=== PATIENT | male | born 1955 | race African-American/Black ===

== ENCOUNTER 2017-05-05 18:38 | Emergency (ER) | payer OTHER, MEDICAID ==
[~2017-05-05 18:38] MED LIST: ADA30 PO; APR25 PO; ASPIR 8181 MG PO; ASPIRIN EC81 M1 PO; CAT0.1 PO; CLINDAMYCIN300 M1 PO; CLONIDINE HCL0.2 MG PO; COREG12.5 MG PO; DILTIAZEM HCL120 M2; DILTIAZEM HCL240 MG PO; FLO4 PO; FUROSEMIDE40 MG PO; INSULIN LANTUS; L40 PO; LABETALOL HCL200 MG; LABETALOL HYDR300 MG PO; LAC PO; LEVAQUIN LEVA-750 M1 PO; LIPI10 PO; LOP50 PO; MEV20 PO; NEPHRO-VITE VITA1 EA PO; NOVOLIN 70/3010 ML SC; NOVOLOG MI10 U/0.11 SC; OXYC PO; RENVELA800 M1 PO; TAMSULOSIN HYD0.4 M1 PO; XARELTO15 M1 PO
[2017-05-05 19:58] LABS: BASOPHIL % 0.4 % (0-2); PLATELET COUNT 203 x10^3mcL (130-400)
[2017-05-05 20:08] LABS: ALBUMIN 3.8 g/dL (3.4-5.0); BILIRUBIN TOTAL 1.2 mg/dL (0.20-1.00); CALCIUM 9.7 mg/dL (8.5-10.1); CARBON DIOXIDE 28.4 mmol/L (21-32); POTASSIUM SERUM 4.3 mmol/L (3.5-5.1)
[2017-05-05 20:09] LABS: TOTAL PROTEIN, SERUM 8.4 g/dL (6.4-8.2)
[2017-05-05 20:19] LABS: RED CELL DISTRIBUTION WIDTH 18.3 % (11.5-14.5)
[2017-05-05 23:07] VITALS: BP 152/78
== END 2017-05-05 23:07 | disposition home or self-care (01) ==
LOC: ED 18:38
PROVIDERS: Emergency Medicine
DX: R10.31 Right lower quadrant pain (principal); R10.32 Left lower quadrant pain; R11.10 Vomiting, unspecified; R19.7 Diarrhea, unspecified; I10 Essential (primary) hypertension; E11.9 Type 2 diabetes mellitus without complications; Z79.899 Other long term (current) drug therapy; Z88.0 Allergy status to penicillin; Z88.5 Allergy status to narcotic agent; Z88.8 Allergy status to other drugs, medicaments and biological substances; Z88.6 Allergy status to analgesic agent; Z99.2 Dependence on renal dialysis
CPT/HCPCS: J1170; J2405; J7040; Q0092

== ENCOUNTER 2017-06-05 12:59 | Emergency (ER) | payer OTHER, MEDICAID ==
[~2017-06-05] VITALS: Ht 190.5 cm; Wt 97.5 kg
[2017-06-05 13:39] LABS: BASOPHIL % 0.2 % (0-2); PLATELET COUNT 179 x10^3mcL (130-400)
[2017-06-05 13:43] LABS: RED CELL DISTRIBUTION WIDTH 18.4 % (11.5-14.5)
[2017-06-05 13:55] LABS: ALBUMIN 3.5 g/dL (3.4-5.0); BILIRUBIN TOTAL 0.87 mg/dL (0.20-1.00); CALCIUM 8.8 mg/dL (8.5-10.1); CARBON DIOXIDE 29.5 mmol/L (21-32); POTASSIUM SERUM 4.6 mmol/L (3.5-5.1)
[2017-06-05 14:01] LABS: CREATININE SERUM 9.3 mg/dL (0.7-1.3)
[2017-06-05 15:41] VITALS: BP 141/62
== END 2017-06-05 15:41 | disposition home or self-care (01) ==
LOC: ED 12:59
PROVIDERS: Emergency Medicine
DX: R10.9 Unspecified abdominal pain (principal); I12.9 Hypertensive chronic kidney disease with stage 1 through stage 4 chronic kidney disease, or unspecified chronic kidney disease; E11.22 Type 2 diabetes mellitus with diabetic chronic kidney disease; N18.9 Chronic kidney disease, unspecified; M54.30 Sciatica, unspecified side; Z88.6 Allergy status to analgesic agent; Z88.0 Allergy status to penicillin; Z88.5 Allergy status to narcotic agent
CPT/HCPCS: 83880; J2765; J3010

== ENCOUNTER 2017-06-28 15:15 | Inpatient (IN) | payer OTHER, MEDICAID ==
[~2017-06-28] VITALS: Ht 190.5 cm; Wt 91.7 kg
--- NOTE | 2017-06-28 15:34 | NUR ---
EKG BY EMT
--- NOTE | 2017-06-28 15:42 | NUR ---
PT BIB FAMILY C/C CT ABD PAIN HEMATURIA STS MISSED DYALISIS THIS AM PLACED ON MONITOR AWAITING FOR DR DARCI BARILLAS
--- NOTE | 2017-06-28 15:50 | NUR ---
PLEASE ENTER FULL NAMES OF GLOBAL UPSTREAM MARKETING MANAGER/RN Patient data collected by (GLOBAL UPSTREAM MARKETING MANAGER): Jaime HUDSON Assessment reviewed and completed by (RN): Denisha THURMAN
--- NOTE | 2017-06-28 16:32 | NUR ---
DR BARCENAS AT BEDSIDE TO NARGIS
--- NOTE | 2017-06-28 16:39 | NUR ---
XRAY AT BEDSIDE
--- NOTE | 2017-06-28 16:50 | NUR ---
RT AND COST RECOVERY TECHNICIAN AT BEDSIDE FOR BLOOD DRAW ABG
[2017-06-28 17:05] LABS: BASOPHIL % 0.1 % (0-2); PLATELET COUNT 158 x10^3mcL (130-400)
[2017-06-28 17:09] LABS: RED CELL DISTRIBUTION WIDTH 15.4 % (11.5-14.5)
[2017-06-28 17:18] LABS: ALBUMIN 3.8 g/dL (3.4-5.0); BILIRUBIN TOTAL 1.42 mg/dL (0.20-1.00); CALCIUM 9.8 mg/dL (8.5-10.1); CARBON DIOXIDE 31.5 mmol/L (21-32); POTASSIUM SERUM 5.1 mmol/L (3.5-5.1); TOTAL PROTEIN, SERUM 9.3 g/dL (6.4-8.2)
--- NOTE | 2017-06-28 18:31 | NUR ---
PT ADMIT TO TELE ROOM 254A GAVE REPORT TO ALLY
--- NOTE | 2017-06-28 19:23 | NUR ---
REC'D PT FROM ER VIA [facility]. PT IS AAOX4. C/O MILD HEADACHE AND DIZZINESS. TELE #6 SR WITH 1ST DEGREE AVB. PT C/O 10/10 CHEST PAIN AND ABD PAIN. RESP EVEN AND UNLABORED. NO SOB NOTED. 3+ EDEMA NOTED TO BLE. ABD SOFT. BS ACTIVE X4. PT C/O MILD NAUSEA. PT REPORTS HAVING DIARRHEA. AV SHUNT NOTED TO LEFT ARM. SMALL ABRASION NOTED TO RIGHT FOOT 2ND TOE. BANDAID APPLIED. IV NOTED TO RW. INTACT AND PATENT. ORIENTED PT TO CALL LIGHT. BED IN LOWEST POSITION. WILL ENDORSE TO PRIMARY RN.
[2017-06-28 19:43] VITALS: BP 160/106
[2017-06-28 20:01] LABS: microscopic required? YES; urine erythrocyte 3+ (NEGATIVE)
[2017-06-28 20:19] LABS: AMPHETAMINE QUAL UR NONE DETECTED (NEG <=1000)
[2017-06-28 20:57] LABS: T3 TOTAL 0.52 ng/mL
[2017-06-28 21:01] LABS: FREE T4 1.29 ng/dL (0.76-1.46); FREE THYROXINE INDEX 2.8 ug/dL (1.4-4.5)
[2017-06-28 21:04] LABS: CHOLESTEROL/HDL RATIO 2.6; MAGNESIUM 2.9 mg/dL (1.8-2.4); PHOSPHOROUS 6.4 mg/dL (2.5-4.9)
--- NOTE | 2017-06-29 04:00 | NUR ---
DR MCNULTY MADE AWARE OF LATEST TROP LEVEL 0.150 NO FURTHER ORDERS MADE AT THIS TIME
--- NOTE | 2017-06-29 06:10 | NUR ---
PATIENT RESTING IN BED. RESPIRATION EVEN AND UNLABORED, ON ROOM AIR. RECEIVED TELEPHONE ORDER TO GIVE LABETALOL 300 MG PO FOR ELEVATED BP. ASSISTED WITH NEEDS. SAFETY OBSERVED. PLACED CALL LIGHT WITHIN REACH AT ALL TIMES.
[2017-06-29 06:12] VITALS: BP 182/100
[2017-06-29 06:14] LABS: CALCIUM 8.9 mg/dL (8.5-10.1); CARBON DIOXIDE 32.3 mmol/L (21-32); PHOSPHOROUS 3.9 mg/dL (2.5-4.9); POTASSIUM SERUM 3.3 mmol/L (3.5-5.1)
[2017-06-29 06:21] LABS: BASOPHIL % 0.7 % (0-2); PLATELET COUNT 138 x10^3mcL (130-400)
[2017-06-29 06:23] VITALS: BP 171/93
--- NOTE | 2017-06-29 06:24 | NUR ---
PATIENTS LATEST BLOOD PRESSURE 171/93 POST LABETALOL 300 MG PO. RECEIVED TELEPHONE ORDER FROM DR MCNULTY TO GIVE ONE MORE BLOOD PRESSURE MEDICATION EARLY.
[2017-06-29 06:26] LABS: RED CELL DISTRIBUTION WIDTH 15.2 % (11.5-14.5)
[2017-06-29 06:29] LABS: CREATININE SERUM 7.3 mg/dL (0.7-1.3)
--- NOTE | 2017-06-29 07:15 | NUR ---
AAOX3, ABLE TO VERBALIZE NEEDS WITH CLEAR AND COHERENT SPEECH, WAS DIALYZED THIS AM, 3.5L REMOVED, DENIES SOB, DIZZINESS, ABLE TO FOLLOW SIMPLE COMMANDS, AV SHUNT AT LEFT ARM, WITH POSITIVE BRUIT &THRILL, REPORTS HX OF BLOODY STOOL, HAS URINE OUTPUT, NO ACTIVE BLEEDING NOTED OR REPORTED, ON TELE #6 SR W/1 AVB, IV HEPLOCK AT R/WRIST, CALL LIGHT WITHIN REACH, WILL CONTINUE TO PROVIDE CARE.
--- NOTE | 2017-06-29 08:10 | NUR ---
C/O GENERALIZED PAIN 02/28, PAIN ADMIN ORDERED, REPORTS HX OF SCIATIC PAIN, ASSISTED TO POSITION OF COMFORT, CALL LIGHT WITHIN REACH, STUDENT RN OFFERING ASSISTANCE, CALL LIGHT WITHIN REACH, WILL CONTINUE TO PROVIDE CARE.
--- NOTE | 2017-06-29 08:16 | NUR ---
WIND TUNNEL MECHANIC REPORTS THE NEED TO CONSULT WITH RADIOLOGIST PRIOR TO STUDY 2/ PATIENT'S CALCULATED GFR 14.1. PT IS CURRENTLY NPO.
[2017-06-29 09:19] VITALS: BP 168/93
--- NOTE | 2017-06-29 10:00 | NUR ---
DOSE OF LASIX NOT GIVEN, POTASSIUM IS 3.3
--- NOTE | 2017-06-29 11:17 | NUR ---
ECHO NOT COMPLETED PT. REFUSED STUDY. PT. SEES FOR CARDIOLOGY AND HAD ECHO PLUS STRESS TEST DONE 2 MONTHS PRIOR.
[2017-06-29 13:06] VITALS: BP 159/97
--- NOTE | 2017-06-29 13:08 | NUR ---
1205: SPOKE WITH PRODUCT ANALYST REGARDING TIME OF CT, TECH REPORTS HAVING SEVERAL CASES IN ER AND WILL COME UP ONCE THOSE ARE COMPLETED. 1305: PATIENT VERBALIZED FEELING UPSET, HE IS VERY HUNGRY AND "DON'T UNDERSTAND WHY I AM NOT BEEN FED" PRIMARY RN PROVIDED INFORMATION ON NPO REQUIREMENTS FOR CT ANGIO, PT WOULD LIKE TO SPEAK WITH DOCTOR "NOW," DR CLEVELAND PAGED.
--- NOTE | 2017-06-29 13:25 | NUR ---
DR CLEVELAND AT BEDSIDE TO SPEAK WITH PATIETN, ALL QUESTIONS AND CONCERNS ADDRESSED.
--- NOTE | 2017-06-29 13:30 | NUR ---
TAKEN DOWNSTAIRS FOR CT VIA WHEELCHAIR.
--- NOTE | 2017-06-29 13:38 | NUR ---
RUBÉN FROM CT REPORTS CONTRAST CANNOT BE INJECTED INTO THE WRIST, PT REQUIRES NEW IV START, RESOURCE RN WILL BE GOING DOWNSTAIRS TO START ONE.
--- NOTE | 2017-06-29 14:26 | NUR ---
RETURNED FROM CT, HAVING LUNCH.
[2017-06-29 17:08] VITALS: BP 165/99
--- NOTE | 2017-06-29 17:55 | NUR ---
REFUSED XARELTO DOSE, PATIENT REPORTS THIS MEDICATION "MADE ME BLEED AND I WAS IN THE HOSPITAL FOR 2 WEEKS," RISKS AND BENEFITS EXPLAINED, PT VERBALIZED UNDERSTANDING, DR CLEVELAND MADE AWARE.
--- NOTE | 2017-06-29 18:21 | NUR ---
RESTING IN BED, C/O RLE PAIN 10/29, ASSISTED TO POSITION OF COMFORT, WILL MONITOR CLOSELY FOR SAFETY AND COMFORT, WILL HAVE HD IN THE AM, REFUSED DOSE OF XARELTO, REPORTS HX OF BLEEDING EPISODE WITH MEDICAITON, DR CLEVELAND IS AWARE AND WILL D/C ORDER, NO OTHER SIGNIFICANT CHANGES NOTED, WILL ENDORSE CARE TO NIGHT NURSE.
--- NOTE | 2017-06-29 20:19 | NUR ---
PT CURRENTLY RESTING IN BED, NO ACUTE DISTRESS. A/O X4. TELE #6 SHOWING SINUS RHYTHM, DENIES CHEST PAIN. PULSES PALPABLE IN ALL EXTREMITIES, NO EDEMA NOTED. LUNG SOUNDS CTA BILATERALLY, DENIES SOB. BOWEL SOUNDS ACTIVE, LAST BM 06/28/17, PT REPORTS PREVIOUS BLOODY STOOLS. OLIGURIC. AV SHUNT NOTED TO LFA. GENERALIZED WEAKNESS, SLOW GAIT, AMBULATORY WITH CANE. RIGHT FOOT 2ND TOE ABRASION EDI DEVELOPER. C/O BILATERAL LEG PAIN /, MEDICATED PER EMAR. IV PATENT AND INTACT. BED IN LOWEST POSITION, SIDE RAILS UP X2, SCDS IN PLACE, CALL LIGHT WITHIN REACH. WILL CONTINUE TO MONITOR.
[2017-06-29 21:43] VITALS: BP 145/94
--- NOTE | 2017-06-29 23:13 | NUR ---
CALLED [facility] AND LEFT A MESSAGE FOR HD 06/30 AT 0600.
--- NOTE | 2017-06-30 00:12 | NUR ---
PT CURRENTLY RESTING IN BED, NO ACUTE DISTRESS. WILL CONTINUE TO MONITOR.
--- NOTE | 2017-06-30 01:15 | NUR ---
PT STATED BLOOD SUGAR FEELING LOW. BLOOD GLUCOSE 57, PT GIVEN FOOD, REPEAT BLOOD GLUCOSE 54. D50 ADMINISTERED. WILL CONTINUE TO MONITOR.
--- NOTE | 2017-06-30 01:37 | NUR ---
BLOOD GLUCOSE POST D50 169, NO ACUTE DISTRESS. WILL CONTINUE TO MONITOR.
[2017-06-30 05:20] VITALS: BP 152/91
--- NOTE | 2017-06-30 06:06 | NUR ---
PT SLEPT PERIODICALLY THROUGHOUT NIGHT, NO ACUTE DISTRESS. ALL NEEDS MET AND ATTENDED TO. NO SIGNIFICANT CHANGES. IV PATENT AND INTACT. MEDICATED PAIN PER EMAR. BED IN LOWEST POSITION, SIDE RAILS UP X2, SCDS IN PLACE, CALL LIGHT WITHIN REACH. WILL ENDORSE CARE TO ONCOMING NURSE.
[2017-06-30 06:15] LABS: BASOPHIL % 0.2 % (0-2); PLATELET COUNT 138 x10^3mcL (130-400)
[2017-06-30 06:25] LABS: RED CELL DISTRIBUTION WIDTH 14.9 % (11.5-14.5)
[2017-06-30 06:32] LABS: CALCIUM 8.6 mg/dL (8.5-10.1); CARBON DIOXIDE 29.1 mmol/L (21-32); MAGNESIUM 2.2 mg/dL (1.8-2.4); PHOSPHOROUS 5.5 mg/dL (2.5-4.9); POTASSIUM SERUM 4.2 mmol/L (3.5-5.1)
[2017-06-30 06:39] LABS: CREATININE SERUM 9.3 mg/dL (0.7-1.3)
--- NOTE | 2017-06-30 06:40 | NUR ---
RECEIVED A CALL FROM LENIN INIGUEZ)- CREAT=9.3, BUN=51.0, WILL RELAY TO ASSIGN NURSE HAILE-ALBA.
--- NOTE | 2017-06-30 08:00 | NUR ---
RECEIVED PT IN BED ALERT AND ORIENTED X4. TELE #6, NSR WITH 1ST DEGREE AV BLOCK. DENIES CHEST PAIN. BREATHING EVEN AND UNLABORED ON RA, NO SOB. AV SHUNT TO LFA WITH POSITIVE BRUIT AND THRILL. FOR HD TODAY. AMBULATES WITH CANE. NO EDEMA NOTED. ISNTRUCTED TO USE CALL LIGHT WHEN IN NEED OF ANY ASSISTANCE.
--- NOTE | 2017-06-30 08:30 | NUR ---
BEDSIDE ROUNDS DONE WITH DR RODRIGUEZ, PT EXPRESSED DESIRE TO GO HOME LATER TODAY. EXPLAINED IMPORTANCE OF GETTING A CARDIAC AND SURGERY CONSULT BEFORE DISCHARGE, PT VERBALIZED UNDERSTANDING.
[2017-06-30 09:10] VITALS: BP 149/90
--- NOTE | 2017-06-30 10:30 | NUR ---
HEMODIALYSIS ONGOING NOW.
[2017-06-30 12:10] VITALS: BP 157/90
--- NOTE | 2017-06-30 14:00 | NUR ---
HEMODIALYSIS DONE WITH TOTAL OUTPUT OF 1.4L. PT DENIES ANY PAIN OR DISCOMFORT AT THIS TIME.
--- NOTE | 2017-06-30 17:40 | NUR ---
PT SITTING UP IN BED, DENIES ANY PAIN OR DISCOMFORT. ALL NEEDS ATTENDED TO. CALL LIGHT WITHIN REACH.
[2017-06-30 17:41] VITALS: BP 159/100
--- NOTE | 2017-06-30 19:00 | NUR ---
PT SEEN BY DR JOHNSON AND DR BAUTISTA WAS CLEARED. PT WANTING TO GO HOME NOW. DR CLEVELAND SPOKE TO HIM AND EXPLAINED THAT DISCHARGE IS NOT PLANNED FOR TODAY, PT WANTING TO GO AMA. DR CLEVELAND EXPLAINED TO PT RISKS OF LEAVING AMA, PT VERBALIZED UNDERSTANDING. IV AND TELE DC'D. PT BROUGHT OFF FLOOR VIA [facility], FAMILY HERE TO LABORATORY ANALYST PT.
== END 2017-06-30 19:00 | disposition left against medical advice (07) | DRG 205 ==
LOC: ED 15:15 → DU 18:03
PROVIDERS: Emergency Medicine; Internal Medicine Nephrology; ADMIT Family Medicine Sports Medicine
DX: M94.0 Chondrocostal junction syndrome [Tietze] (principal); N18.6 End stage renal disease; N17.0 Acute kidney failure with tubular necrosis; I50.43 Acute on chronic combined systolic (congestive) and diastolic (congestive) heart failure; D68.69 Other thrombophilia; K92.1 Melena; I13.2 Hypertensive heart and chronic kidney disease with heart failure and with stage 5 chronic kidney disease, or end stage renal disease; E11.22 Type 2 diabetes mellitus with diabetic chronic kidney disease; E11.51 Type 2 diabetes mellitus with diabetic peripheral angiopathy without gangrene; E11.65 Type 2 diabetes mellitus with hyperglycemia; B18.2 Chronic viral hepatitis C; R80.9 Proteinuria, unspecified; I34.0 Nonrheumatic mitral (valve) insufficiency; I36.1 Nonrheumatic tricuspid (valve) insufficiency; R31.9 Hematuria, unspecified; E83.39 Other disorders of phosphorus metabolism; D63.1 Anemia in chronic kidney disease; Z99.2 Dependence on renal dialysis; Z79.4 Long term (current) use of insulin; Z68.26 Body mass index [BMI] 26.0-26.9, adult; Z91.15 Patient's noncompliance with renal dialysis; Z85.46 Personal history of malignant neoplasm of prostate; Z91.19 Patient's noncompliance with other medical treatment and regimen
CPT/HCPCS: 83880; 84439; 85378; A4719; J1170; J1940; J3490; J7030; Q0092; Q9967

== ENCOUNTER 2017-12-21 06:00 | Inpatient (IN) | payer OTHER, MEDICAID ==
[~2017-12-21] VITALS: Ht 188 cm; Wt 97.5 kg
[2017-12-21 06:05] VITALS: Ht 188 cm; Wt 97.5 kg
[2017-12-21 07:01] LABS: ALBUMIN 3.7 g/dL (3.4-5.0); BILIRUBIN TOTAL 1.2 mg/dL (0.20-1.00); CALCIUM 9.3 mg/dL (8.5-10.1); CARBON DIOXIDE 31.6 mmol/L (21-32); PHOSPHOROUS 3.7 mg/dL (2.5-4.9); POTASSIUM SERUM 4.2 mmol/L (3.5-5.1); URIC ACID 4.1 mg/dL (3.5-7.2)
[2017-12-21 07:04] LABS: TOTAL PROTEIN, SERUM 8.5 g/dL (6.4-8.2)
[2017-12-21 07:06] LABS: CREATININE SERUM 8.9 mg/dL (0.7-1.3)
[2017-12-21 07:27] LABS: BASOPHIL % 0.2 % (0-2)
[2017-12-21 07:37] LABS: PLATELET COUNT 119 x10^3mcL (130-400); RED CELL DISTRIBUTION WIDTH 16.1 % (11.5-14.5)
[2017-12-21 09:59] LABS: MAGNESIUM 2.7 mg/dL (1.8-2.4)
[2017-12-21 10:00] LABS: T3 TOTAL 0.74 ng/mL
[2017-12-21 10:08] LABS: FREE T4 1.17 ng/dL (0.76-1.46); FREE THYROXINE INDEX 2.8 ug/dL (1.4-4.5); T4(THYROXINE) 7.7 ug/dL (4.7-13.3)
[2017-12-21 11:08] VITALS: BP 196/116
[2017-12-21 14:16] VITALS: BP 188/113
[2017-12-21] MEDS ORDERED: LANTUS SOLOS100 U/M1 SQ (14:28)
[2017-12-21] MEDS ORDERED: LABETALOL HYDR300 MG PO (14:29)
[2017-12-21] MEDS ORDERED: FLOMAX0.4 MG PO (14:31)
[2017-12-21] MEDS ORDERED: CLONIDINE HCL0.2 MG PO (14:36)
[2017-12-21] MEDS ORDERED: DILTIAZEM HCL240 MG PO (14:36)
[2017-12-21] MEDS ORDERED: NOR10T PO (14:38)
[2017-12-21] MEDS ORDERED: LASIX40 MG PO (14:41)
[2017-12-21 17:12] VITALS: BP 179/100
[2017-12-21 17:20] LABS: RED BLOOD CELLS 3.22 M/mm3 (4.52-5.90)
[2017-12-21 18:15] VITALS: BP 161/69
[2017-12-21 18:48] LABS: IRON 70 ug/dL (65-170); TOTAL IRON BINDING CAPACITY 222 ug/dL (250-450)
[2017-12-21 21:54] VITALS: BP 154/100
[2017-12-22 05:00] LABS: UA SPECIFIC GRAVITY 1.015 (1.005-1.035); microscopic required? YES; urine erythrocyte 1+ (NEGATIVE)
[2017-12-22 05:09] LABS: AMPHETAMINE QUAL UR NONE DETECTED (NEG <=1000)
[2017-12-22 06:25] LABS: BASOPHIL % 0.1 % (0-2); CALCIUM 9.2 mg/dL (8.5-10.1); CARBON DIOXIDE 27.7 mmol/L (21-32); POTASSIUM SERUM 4.5 mmol/L (3.5-5.1)
[2017-12-22 06:34] VITALS: BP 162/93
[2017-12-22 06:56] LABS: PLATELET COUNT 114 x10^3mcL (130-400); RED CELL DISTRIBUTION WIDTH 16.4 % (11.5-14.5)
[2017-12-22 06:59] LABS: CREATININE SERUM 6.5 mg/dL (0.7-1.3)
[2017-12-22 10:45] VITALS: BP 154/96
[2017-12-22 16:37] VITALS: BP 143/93
[2017-12-22 16:43] VITALS: BP 143/93
== END 2017-12-22 16:51 | disposition home or self-care (01) | DRG 205 ==
LOC: ED 06:00 → DU 07:56
PROVIDERS: Emergency Medicine; Family Medicine
PROC: 5A1D70Z Performance of Urinary Filtration, Intermittent, Less than 6 Hours Per Day (ICD-10-PCS; principal; 2017-12-21)
DX: M94.0 Chondrocostal junction syndrome [Tietze] (principal); N18.6 End stage renal disease; I13.2 Hypertensive heart and chronic kidney disease with heart failure and with stage 5 chronic kidney disease, or end stage renal disease; I50.20 Unspecified systolic (congestive) heart failure; K56.7 Ileus, unspecified; E11.22 Type 2 diabetes mellitus with diabetic chronic kidney disease; D63.8 Anemia in other chronic diseases classified elsewhere; F41.9 Anxiety disorder, unspecified; F32.9 Major depressive disorder, single episode, unspecified; G89.29 Other chronic pain; Z60.2 Problems related to living alone; Z66 Do not resuscitate; I16.0 Hypertensive urgency; D64.9 Anemia, unspecified; Z53.29 Procedure and treatment not carried out because of patient's decision for other reasons; E11.65 Type 2 diabetes mellitus with hyperglycemia; I27.20 Pulmonary hypertension, unspecified; F43.23 Adjustment disorder with mixed anxiety and depressed mood; Z99.2 Dependence on renal dialysis; Z90.49 Acquired absence of other specified parts of digestive tract; Z88.0 Allergy status to penicillin; Z88.6 Allergy status to analgesic agent; Z88.5 Allergy status to narcotic agent
CPT/HCPCS: 83880; 84439; J0360; J1644; J1815; J2405; J3010; J3490; Q0092

== ENCOUNTER 2018-03-12 21:23 | Emergency (ER) | payer OTHER ==
[~2018-03-12 21:23] MED LIST changes: +FLOMAX0.4 MG PO; +LANTUS SOLOS100 U/M1 SQ; +LASIX40 MG PO; +NOR10T PO
== END 2018-03-12 21:56 | disposition left against medical advice (07) ==
LOC: ED 21:23
DX: Z53.21 Procedure and treatment not carried out due to patient leaving prior to being seen by health care provider (principal)

== ENCOUNTER 2018-03-19 06:10 | Inpatient (IN) | payer OTHER, MEDICAID ==
[~2018-03-19] VITALS: Ht 188 cm; Wt 89.5 kg
[~2018-03-19 06:10] MED LIST changes: +CLONIDINE HYDR0.3 M1 PO
[2018-03-19 06:31] VITALS: Ht 188 cm; Wt 89.5 kg
[2018-03-19 07:24] LABS: PLATELET COUNT 150 x10^3mcL (130-400)
[2018-03-19 07:44] LABS: BASOPHIL % 0 % (0-2); RED CELL DISTRIBUTION WIDTH 15.9 % (11.5-14.5)
[2018-03-19 08:24] LABS: ALBUMIN 3.6 g/dL (3.4-5.0); BILIRUBIN TOTAL 1.13 mg/dL (0.20-1.00); CALCIUM 9.6 mg/dL (8.5-10.1); CARBON DIOXIDE 30.9 mmol/L (21-32); POTASSIUM SERUM 4.9 mmol/L (3.5-5.1)
[2018-03-19 08:30] LABS: CREATININE SERUM 7.9 mg/dL (0.7-1.3); TOTAL PROTEIN, SERUM 8.6 g/dL (6.4-8.2)
[2018-03-19 11:10] LABS: MAGNESIUM 2.7 mg/dL (1.8-2.4); PHOSPHOROUS 5.2 mg/dL (2.5-4.9)
[2018-03-19 11:21] LABS: FREE T4 1.06 ng/dL (0.76-1.46); FREE THYROXINE INDEX 2.6 ug/dL (1.4-4.5); T4(THYROXINE) 7.1 ug/dL (4.7-13.3)
[2018-03-19 11:23] LABS: T3 TOTAL 0.7 ng/mL
[2018-03-19 11:58] VITALS: BP 157/102
[2018-03-19] MEDS ORDERED: CARVEDILOL3.125 M1 PO (14:23)
[2018-03-19 16:48] VITALS: BP 150/103
[2018-03-19 17:31] VITALS: BP 150/103
[2018-03-19 20:06] LABS: microscopic required? YES; urine erythrocyte 3+ (NEGATIVE)
[2018-03-19 20:13] LABS: AMPHETAMINE QUAL UR NONE DETECTED (See below)
[2018-03-19 21:25] VITALS: BP 150/99
[2018-03-20 06:20] VITALS: BP 148/101
[2018-03-20 08:00] VITALS: BP 153/101
[2018-03-20 14:02] VITALS: BP 159/100
[2018-03-20 17:56] VITALS: BP 150/85
[2018-03-20 21:05] VITALS: BP 126/83
[2018-03-21 05:43] VITALS: BP 143/81
[2018-03-21 07:13] LABS: BASOPHIL % 0.1 % (0-2); PLATELET COUNT 148 x10^3mcL (130-400)
[2018-03-21 07:18] LABS: RED CELL DISTRIBUTION WIDTH 15.8 % (11.5-14.5)
[2018-03-21 07:24] LABS: CARBON DIOXIDE 27.1 mmol/L (21-32); MAGNESIUM 2.3 mg/dL (1.8-2.4); PHOSPHOROUS 5.2 mg/dL (2.5-4.9); POTASSIUM SERUM 4.9 mmol/L (3.5-5.1); TOTAL PROTEIN, SERUM 7.8 g/dL (6.4-8.2)
[2018-03-21 07:31] LABS: CREATININE SERUM 7.3 mg/dL (0.7-1.3)
[2018-03-21 08:58] VITALS: BP 135/89
[2018-03-21] MEDS ORDERED: IPRATROPIUM BROM3 M2 HHN ×2 (10:39)
[2018-03-21] MEDS ORDERED: BUDESONIDE0.5 MG/2 M IH (10:40)
[2018-03-21] MEDS ORDERED: NEP PO (10:40)
[2018-03-21 11:05] VITALS: BP 135/89
== END 2018-03-21 13:51 | disposition home or self-care (01) | DRG 280 ==
LOC: ED 06:10 → DU 09:47
PROVIDERS: Emergency Medicine; Family Medicine
DX: I21.A1 Myocardial infarction type 2 (principal); J96.20 Acute and chronic respiratory failure, unspecified whether with hypoxia or hypercapnia; N18.6 End stage renal disease; I42.0 Dilated cardiomyopathy; I13.2 Hypertensive heart and chronic kidney disease with heart failure and with stage 5 chronic kidney disease, or end stage renal disease; I50.22 Chronic systolic (congestive) heart failure; M94.0 Chondrocostal junction syndrome [Tietze]; I16.0 Hypertensive urgency; E11.51 Type 2 diabetes mellitus with diabetic peripheral angiopathy without gangrene; E11.65 Type 2 diabetes mellitus with hyperglycemia; E11.22 Type 2 diabetes mellitus with diabetic chronic kidney disease; G47.33 Obstructive sleep apnea (adult) (pediatric); D63.1 Anemia in chronic kidney disease; M71.22 Synovial cyst of popliteal space [Baker], left knee; B18.2 Chronic viral hepatitis C; Z66 Do not resuscitate; F41.8 Other specified anxiety disorders; I27.20 Pulmonary hypertension, unspecified; Z99.2 Dependence on renal dialysis; Z92.3 Personal history of irradiation; Z79.4 Long term (current) use of insulin; Z68.24 Body mass index [BMI] 24.0-24.9, adult; Z87.891 Personal history of nicotine dependence; Z85.46 Personal history of malignant neoplasm of prostate
CPT/HCPCS: 83880; 84439; 94150; J1644; J1940; J3490; J7030; J7620; J7626; Q0092; Q0163

== ENCOUNTER 2018-03-26 02:51 | Inpatient (IN) | payer OTHER, MEDICAID ==
[~2018-03-26] VITALS: Ht 188 cm; Wt 95.1 kg
[~2018-03-26 02:51] MED LIST changes: +BUDESONIDE0.5 MG/2 M IH; +CARVEDILOL3.125 M1 PO; +IPRATROPIUM BROM3 M2 HHN; +NEP PO
[2018-03-26 03:01] VITALS: Ht 188 cm; Wt 95.1 kg
[2018-03-26 03:56] LABS: BASOPHIL % 0.3 % (0-2); PLATELET COUNT 171 x10^3mcL (130-400); RED CELL DISTRIBUTION WIDTH 14.4 % (11.5-14.5)
[2018-03-26 04:11] LABS: ALBUMIN 3.5 g/dL (3.4-5.0); ALKALINE PHOSPHATASE 203 U/L (46-116); ALT/SGPT 27 U/L (16-63); AST/SGOT 21 U/L (15-37); BILIRUBIN TOTAL 1.14 mg/dL (0.20-1.00); CALCIUM 9.2 mg/dL (8.5-10.1); CARBON DIOXIDE 27.4 mmol/L (21-32); CHLORIDE SERUM 98 mmol/L (98-107); GLUCOSE SERUM 247 mg/dL (74-106); LIPASE 195 IU/L (73-393); POTASSIUM SERUM 4.4 mmol/L (3.5-5.1); SODIUM SERUM 136 mmol/L (136-145)
[2018-03-26 04:18] LABS: GFR1 9 mL/min; TOTAL PROTEIN, SERUM 8.9 g/dL (6.4-8.2)
[2018-03-26 04:20] LABS: CREATININE SERUM 6.9 mg/dL (0.7-1.3)
[2018-03-26] MEDS ORDERED: COZAAR25 M1 PO (09:10)
[2018-03-26] MEDS ORDERED: PULMICORT0.5 MG/2 M NEB (09:10)
[2018-03-26 09:26] VITALS: BP 175/97
[2018-03-26 10:03] VITALS: BP 173/107
[2018-03-26 13:10] VITALS: BP 183/116
[2018-03-26 17:20] VITALS: BP 177/122
[2018-03-26 18:38] VITALS: BP 167/110
[2018-03-26 20:59] VITALS: BP 153/100
[2018-03-27] VITALS (7 sets, daily range): BP systolic 143–168; BP diastolic 96–107
== END 2018-03-27 21:15 | disposition home or self-care (01) | DRG 291 ==
LOC: ED 02:51 → DU 07:56
PROVIDERS: Emergency Medicine
DX: I13.2 Hypertensive heart and chronic kidney disease with heart failure and with stage 5 chronic kidney disease, or end stage renal disease (principal); I50.23 Acute on chronic systolic (congestive) heart failure; N18.6 End stage renal disease; J96.01 Acute respiratory failure with hypoxia; I47.1 Supraventricular tachycardia; E11.22 Type 2 diabetes mellitus with diabetic chronic kidney disease; E11.21 Type 2 diabetes mellitus with diabetic nephropathy; K72.90 Hepatic failure, unspecified without coma; B19.20 Unspecified viral hepatitis C without hepatic coma; D63.1 Anemia in chronic kidney disease; E83.39 Other disorders of phosphorus metabolism; I25.10 Atherosclerotic heart disease of native coronary artery without angina pectoris; Z99.2 Dependence on renal dialysis; Z79.4 Long term (current) use of insulin; Z68.27 Body mass index [BMI] 27.0-27.9, adult; Z87.891 Personal history of nicotine dependence; Z85.46 Personal history of malignant neoplasm of prostate
CPT/HCPCS: 83880; 84439; G0480; J1200; J1815; J3010; J7030; J7620; J7626; Q0162; Q0163; Q9967

== ENCOUNTER 2018-09-09 03:16 | Emergency (ER) | payer OTHER, MEDICAID ==
[~2018-09-09] VITALS: Ht 188 cm; Wt 96.2 kg
[~2018-09-09 03:16] MED LIST changes: +COZAAR25 M1 PO; +PULMICORT0.5 MG/2 M NEB
[2018-09-09 03:22] VITALS: BP 160/101; Ht 188 cm; Wt 96.2 kg
== END 2018-09-09 03:51 | disposition home or self-care (01) ==
LOC: ED 03:16
DX: M25.562 Pain in left knee (principal); E11.22 Type 2 diabetes mellitus with diabetic chronic kidney disease; I12.9 Hypertensive chronic kidney disease with stage 1 through stage 4 chronic kidney disease, or unspecified chronic kidney disease; N18.9 Chronic kidney disease, unspecified; Z90.49 Acquired absence of other specified parts of digestive tract; Z98.890 Other specified postprocedural states; Z88.0 Allergy status to penicillin; Z88.1 Allergy status to other antibiotic agents; Z88.5 Allergy status to narcotic agent; Z88.6 Allergy status to analgesic agent